=== PATIENT | male | born 1955 | race Caucasian/White ===

== ENCOUNTER 2018-12-21 20:30 | Inpatient (IN) | payer OTHER ==
[~2018-12-21] VITALS: Ht 182.9 cm; Wt 82.1 kg
[2018-12-22] VITALS (10 sets, daily range): BP systolic 96–125; BP diastolic 52–60; PULSE 60–72; RESP 18–22; Ht 182.9 cm; Wt 82.1 kg
[2018-12-22] MEDS ORDERED: SODIUM CHLORIDE 0.9% 1L BAG IV* STA
[2018-12-22] MEDS: ACETAMINOPHEN 325 MG TAB PO ONE ×2 (00:48→01:00)
[2018-12-22] MEDS ORDERED: PIPER-TAZO 3.375 GM IV (PMX) 100 ML IVPB ONE (01:00)
[2018-12-22] MEDS ORDERED: DEXAMETHASONE 10 MG/ML 1 ML INJ IV ONE (01:00)
[2018-12-22] MEDS ORDERED: VANCOMYCIN 1 GM (PMX) 250 ML IVPB ONE (01:00)
[2018-12-22] MEDS ORDERED: SOD CHLORIDE 0.9% 100 ML ONE (01:21)
[2018-12-22] MEDS ORDERED: IODIXANOL LOCM 100 ML BTL ONE (01:21)
[2018-12-22] MEDS ORDERED: ASPIRIN 81 MG TAB PO ONE (01:30)
[2018-12-22] MEDS ORDERED: ACETAMINOPHEN 650 MG SUPP PR ONE (01:30)
--- NOTE | 2018-12-22 02:47 | ERD ---
ER Documentation Chief Complaint Chief Complaint DYSPHAGIA X YESTERDAY. NEURO INTACT. HPI This is a 63-year-old male with a past medical history of hypertension, hyperlipidemia, coronary artery disease with previous [place] status post ca theterization and stenting who is presenting with 1 day of fever, chills, myalgias, sore throat, dysphagia with trouble swallowing solid foods but still able to swallow liquids, hoarse voice without drooling. The patient does not endorse any alleviating or exacerbating factors. The patient has had no headache or vision changes. The patient does not endorse neck or back pain. The patient denies lightheadedness or dizziness. The patient has had no chest pain or trouble breathing. The patient denies nausea or vomiting. The patient denies abdominal pain. The patient denies changes to bowel movements or urination. The patient has had no focal deficits. The patient has had no weakness or numbness or tingling to the face or extremities. ROS All systems reviewed and are negative except as per history of present illness. Allergies Allergies: Coded Allergies: No Known Allergies (Verified Allergy, Unknown, 12/21/18) PMhx/Soc History of Surgery: Yes (stenting) Anesthesia Reaction: No Hx Neurological Disorder: No Hx Respiratory Disorders: No Hx Cardiac Disorders: Yes (Heart attack,HTN,Hyperlipidemia) Hx Psychiatric Problems: No Hx Miscellaneous Medical Probl: Yes (BPH) Hx Alcohol Use: Yes (Occasional) Hx Substance Use: No Hx Tobacco Use: Yes (3 months ago) Smoking Status: Former smoker FmHx Family History: No diabetes Physical Exam Vitals Vital Signs Date Temp Pulse Resp B/P (MAP) Pulse Ox O2 O2 Flow FiO2 Time Delivery Rate 12/22/18 87 21 110/59 97 Room Air 02:00 (76) 12/22/18 103.6 01:40 12/22/18 90 19 101/67 97 Room Air 01:30 (78) 12/22/18 103.6 103 22 121/78 97 Room Air 00:30 (92) 12/21/18 103.6 95 22 168/77 96 20:36 (107) Physical Exam Const: No apparent distress, well-developed, well-nourished Head: Normocephalic, Atraumatic Eyes: Normal Conjunctiva. Extraocular movements intact. Pupils equal, round and reactive to light ENT: Normal External Ears, Nose and Mouth. Patent airway. No obvious erythema or asymmetry or exudate to the tonsils. No angioedema. Neck: Full range of motion. No meningismus. Submandibular lymphadenopathy. Resp: Clear to auscultation bilaterally, No wheezes, rales or rhonchi Cardio: Regular rate and rhythm. No murmurs, rubs or gallops Abd: Soft, non tender, non distended. Normal bowel sounds Skin: No petechiae or rashes Back: No midline tenderness. No CVA tenderness Ext: No cyanosis, or edema Neur: Awake and alert, oriented 4. Cranial nerves intact. No facial droop. Normal strength, sensation and coordination. Psych: Normal Mood and Affect Result Diagram: 12/22/18 0004 12/22/18 0004 Results 24 hrs Laboratory Tests Test 12/22/18 00:04 12/22/18 00:20 12/22/18 00:50 12/22/18 02:32 White Blood Count 20.3 10^3/ul Red Blood Count 5.19 10^6/ul Hemoglobin 14.4 g/dl Hematocrit 44.3 % Mean Corpuscular 85.4 fl Volume Mean Corpuscular 27.7 pg Hemoglobin Mean Corpuscular 32.5 g/dl Hemoglobin Concen t Red Cell 13.2 % Distribution Width Platelet Count 154 10^3/UL Mean Platelet 10.1 fl Volume Immature 0.600 % Granulocytes % Neutrophils % 85.2 % Lymphocytes % 4.0 % Monocytes % 10.0 % Eosinophils % 0.0 % Basophils % 0.2 % Nucleated Red 0.0 /100WBC Blood Cells % Immature 0.130 10^3/ul Granulocytes # Neutrophils # 17.3 10^3/ul Lymphocytes # 0.8 10^3/ul Monocytes # 2.0 10^3/ul Eosinophils # 0.0 10^3/ul Basophils # 0.0 10^3/ul Nucleated Red 0.0 10^3/ul Blood Cells # Prothrombin Time 14.0 Sec Prothrombin Time 1.1 Ratio INR International 1.07 Normalized Ratio Activated 30.6 Sec Partial Thrombopl ast Time Sodium Level 139 mmol/L Potassium Level 3.6 mmol/L Chloride Level 102 mmol/L Carbon Dioxide 24 mmol/L Level Anion Gap 13 Blood Urea 17 mg/dl Nitrogen Creatinine 1.19 mg/dl Est Glomerular > 60 mL/min Filtrat Rate mL/min Glucose Level 124 mg/dl Calcium Level 10.0 mg/dl Total Bilirubin 1.2 mg/dl Direct Bilirubin 0.00 mg/dl Indirect 1.2 mg/dl Bilirubin Aspartate Amino 26 IU/L Transf (AST/SGOT) Alanine 37 IU/L Aminotransferase (ALT/SGPT) Alkaline 80 IU/L Phosphatase Troponin I 0.168 ng/ml Total Protein 7.8 g/dl Albumin 4.7 g/dl Globulin 3.10 g/dl Albumin/Globulin 1.51 Ratio POC Venous 1.3 mmol/L 1.2 mmol/L Lactate Urine Color YELLOW Urine Clarity SLIGHTLY CLOUDY Urine pH 5.0 Urine Specific 1.017 [place] Urine Ketones NEGATIVE mg/dL Urine Nitrite NEGATIVE mg/dL Urine Bilirubin NEGATIVE mg/dL Urine NEGATIVE mg/dL Urobilinogen Urine Leukocyte NEGATIVE Pat/ul Esterase Urine Microscopic 4 /HPF RBC Urine Microscopic 1 /HPF WBC Urine Mucus MANY /HPF Urine Hemoglobin 1+ mg/dL Urine Glucose NEGATIVE mg/dL Urine Total NEGATIVE mg/dl Protein Current Medications Medications Dose Sig/Becky Start Time Status Last (Trade) Ordered Route PRN Stop Time Admin Dose Reason Admin Sodium 2,550 ml BOLUS OVER 2 12/22/18 DC 12/22/18 Chloride HOURS STAT 00:00 00:27 (NS) IV* 12/22/18 00:03 Vancomycin 250 ml @ ONCE ONCE 12/22/18 DC 12/22/18 HCl 125 mls/hr IVPB 01:00 01:40 12/22/18 02:59 Piperacillin 100 ml @ ONCE ONCE 12/22/18 DC 12/22/18 Sod/ 200 mls/hr IVPB 01:00 00:48 Tazobactam 12/22/18 01:29 Sod 10 mg ONCE ONCE 12/22/18 DC 12/22/18 Dexamethasone IV 01:00 00:48 (Decadron) 12/22/18 01:01 650 mg ONCE ONCE 12/22/18 DC Acetaminophen PO 01:00 (Tylenol 12/22/18 01:01 Tab) Aspirin 324 mg ONCE ONCE 12/22/18 DC 12/22/18 (Aspirin) PO 01:30 01:40 12/22/18 01:31 650 mg ONCE ONCE 12/22/18 DC 12/22/18 Acetaminophen CA 01:30 01:40 (Tylenol 12/22/18 01:31 Supp) IV Flush 10 ml STK-MED 12/22/18 DC 12/22/18 (NS 10 ml) ONCE .ROUTE 01:16 09:12/22/18 01:22 Sodium 100 ml @ ud STK-MED 12/22/18 DC 12/22/18 Chloride ONCE .ROUTE 01:16 09:12/22/18 01:22 Iodixanol 100 ml STK-MED 12/22/18 DC 12/22/18 (Visipaque ONCE .ROUTE :16 09: Locm) 12/22/18 01:22 Procedures/MDM MDM The patient's presentation warrants further investigation. Previous medical records, if available, were reviewed. LABS The patient's laboratory testing was obtained and reviewed. No emergent treatment was required unless described below. CBC: Leukocytosis with shift, concerning for an infectious etiology. Normal platelet count and hemoglobin. Chemistry: No E/o severe acidosis or alkalosis or renal failure or liver disease or diabetic ketoacidosis PT/INR: No E/o significant coagulopathy Lactate: No E/o severe sepsis Troponin: Elevated, concerning for possible cardiac ischemia Urine: No E/o acute infection or hematuria EKG EKG read by me: Rate/Rhythm: Sinus tachycardia at 104 bpm Intervals: Normal CA interval and QTc. Mildly wide QRS indicating a nonspecific intraventricular block [place]: Normal Impression: Nonspecific repolarization changes without evidence of acute ischemia or arrhythmia IMAGING Imaging and Radiology interpretation reviewed. CXR FINDINGS: Thoracic inlet and apices are partially obscured as the patient is kyphotic. There is thin linear opacity at the left base favoring atelectasis or scarring. Otherwise the lungs are free of focal infiltrate. No CHF including no pleural effusion. No pneumothorax is seen. The heart size and mediastinal contours are within normal limits. There is mild aortic arch atherosclerotic calcification. Osseous structures appear intact with mild degenerative changes. IMPRESSION: Somewhat limited, without definite acute process seen within the chest. Mild aortic atherosclerotic calcification. Electronically viewed and signed by Physician Bhavani on 12/22/2018 02:26 CT Soft Tissue Neck FINDINGS: There is diffuse thickening of the epiglottis measuring 14 mm in diameter on sagittal image 60. There is adjacent soft tissue thickening including of the aryepiglottic folds, and the piriform sinuses are not visualized bilaterally with narrowing of the vallecula left more so than right. Additional soft tissue thickening with lymphoid hyperplasia involving the lingual tonsils, and there is also heterogeneous enhancement and mild enlargement of the left palatine tonsil without a discrete loculated abscess present. As above, there is soft tissue thickening at and about the level of the glottis although the airway is patent.. The prevertebral soft tissues are within normal limits. Parotid and submandibular glands are symmetric. Mildly enlarged bilateral jugular chain nodes most apparent at the jugulodigastric level, measuring up to 10 mm on the right and 9 mm on the left. Inhomogeneity of the thyroid gland includes 4 mm hypodense nodule inferiorly in the right lobe, likely not clinically significant. Emphysematous changes are seen within the visualized apices. Multifocal atherosclerotic calcifications. Of incidental note is dominant left and hypoplastic right vertebral artery. Mild degenerative changes largely consisting of anterior osteophytes within the cervical spine. The central canal and foraminal volumes appear to be preserved. IMPRESSION: Findings consistent with acute epiglottitis. There is associated/adjacent soft tissue thickening including of the aryepiglottic folds, lingual tonsils, along with heterogeneity and mild enlargement of the left palatine tonsil without associated drainable abscess. A patent airway is seen at this time at this time. ENT evaluation is advised. Results and recommendations were called to the ordering clinician Dr. Encinas upon opening of the exam and prior to time of dictation at 0228 hours. Low level bilateral cervical adenopathy, presumably reactive/related. Atherosclerotic vascular calcifications. Emphysema. Electronically viewed and signed by Physician Pa on 12/22/2018 02:47 TREATMENT/DISPOSITION The patient presents for a sore throat, fever and tachycardia. The patient does also have a significant leukocytosis. The patient does meet criteria for a systemic inflammatory response syndrome. The patient CT scan is concerning for epiglottitis. The patient's airway is currently patent. I have decreased suspicion for emergent impending airway compromise. I do not feel that the patient requires intubation at this time. Given the edema of the epiglottis, the patient was also treated with a dose of Decadron. I am concerned about sepsis. A code sepsis was initiated. The patient's lactic acid is normal and there is no evidence of endorgan damage. I do not suspect severe sepsis. The patient was given a sepsis bolus of fluids and started on antibiotics. The patient was given Tylenol for his fever. The patient will require ENT consultation. The patient did also have an elevated troponin in the ER today. I do not see e vidence of acute coronary syndrome on the EKG. The patient does have a history of coronary artery disease status post stenting. The family reports that he has been told he has near complete occlusions and other vessels as well. The patient does not endorse symptoms concerning for a cardiac pathology. That said, the patient was given a dose of aspirin in the emergency department. SEPSIS NOTE SIRS Criteria: Tachycardia, fever, leukocytosis Infectious source: Epiglottitis End organ damage indicated by: None SEPSIS MANAGEMENT Time to recognize sepsis: 0100 Time to recognize severe sepsis: No severe sepsis at this time. Time to recognize septic shock: No septic shock at this time. 3 HOUR BUNDLE Blood cultures x 2 before abx: Yes 30 ml/kg NS bolus completed Initial lactate 1.3 Repeat lactate 1.2 SEPTIC SHOCK ASSESSMENT: NO lactic acid > 4.0 NO persistent hypotension (SBP < 90 or 40 mmHg drop, MAP < 65) despite 30 L/kg IV fluid bolus CRITICAL CARE Critical care time 35 minutes Emergent fluid management while maintaining close respiratory support. Provision of immediate and broad-spectrum antibiotic therapy. Simultaneous assessment for possible sources in order to direct targeted therapy. Consideration for invasive and chemical support to prevent cardiopulmonary collapse. Critical care time is independent of procedures performed. CRITICAL CARE NOTE Time: 36 minutes excluding all billable procedures. Treatments/Evaluations: The patient was at risk of hemodynamic compromise. Timing of critical care involved close serial monitoring, evaluation of the patient's medical record including previous records & current laboratory/imaging studies, potential interventions for prevention of hemodynamic/ cardiopulmonary/ neurologic compromise, maintaining tight fluid balance, and any discussions with the family and/or consultants regarding the patient's status and prognosis. ADMISSION The patient will be admitted to Dr. Hale in accordance with the patient's insurance. The patient was accepted at 3:15AM to the telemetry. Admission to the ICU was discussed with Dr. Hale, but he did not feel that it was necessary at this time. Dr. Hale will call the ENT specialist for consultation. Disclaimer: Inadvertent spelling and grammatical errors are likely due to EHR/dictation software use and do not reflect on the overall quality of patient care. Note that the electronic time recorded on this note does not necessarily reflect the actual time of the patient encounter. Departure Diagnosis: Primary Impression: Epiglottitis Additional Impressions: Sepsis Sepsis type: sepsis due to unspecified organism Qualified Codes: A41.9 - Sepsis, unspecified organism Tachycardia Fever Fever type: unspecified Qualified Codes: R50.9 - Fever, unspecified Leukocytosis Leukocytosis type: unspecified Qualified Codes: D72.829 - Elevated white blood cell count, unspecified Elevated troponin Dysphagia Dysphagia type: unspecified Qualified Codes: R13.10 - Dysphagia, unspecified Condition: Serious AFUA ENCINAS MD Dec 22, 2018 02:45
[2018-12-22] MEDS ORDERED: SOD CHLORIDE 0.9% 1,000 ML IV ONE (04:00)
[2018-12-22] MEDS ORDERED: ACETAMINOPHEN 325 MG TAB PO PRN (04:00)
[2018-12-22] MEDS ORDERED: ONDANSETRON 4 MG INJ IV PRN (04:00)
[2018-12-22] MEDS ORDERED: morphine 2 MG INJ IV PRN (06:30)
--- NOTE | 2018-12-22 07:19 | HP ---
DATE OF ADMISSION: 12/22/2018 HISTORY OF PRESENT ILLNESS: Dawn Hamilton is a 63-year-old gentleman who presented to the Emergency Room this morning with odynophagia. A CAT scan revealed possible epiglottitis. ENT was consulted. PHYSICAL EXAMINATION: Endoscopy was performed to the right nasal cavity because of severe deviation to the left. The nasopharynx is clear. The base of tongue is symmetric. The vallecula is open. Th e epiglottis shows mild erythema and exudate, but no significant airway obstruction. Vocal cords are moving well. There are no lesions. IMPRESSION: Acute epiglottitis. PLAN: At this point, I would continue the steroids and antibiotics. He should be ready for discharg e I suspect within the next 24 hours. If there are any questions or concerns, please feel free to ca ll at any time. Dictated By: SUSU ARAGON MD DM/NTS Conf#: [id number] DID#: [id number] CC: DONTRELL LARA MD;*EndCC*
[2018-12-22] MEDS: DEXTROSE 5%-0.45% NACL 1,000 ML IV SCH ×3 (07:55→20:01)
--- NOTE | 2018-12-22 10:53 | HP ---
DATE OF ADMISSION: 12/22/2018 CHIEF COMPLAINT: Sore throat and difficulty swallowing. HISTORY OF PRESENT ILLNESS: A 63-year-old [place] male with history of hypertension and coronary ar garth disease, status post PCI in the past, presented to emergency room with complaint of sore throat, fever, body aches and difficulty swallowing x1 day. The patient denies any difficulty breathing. N o chest pain. No exertional symptoms. No drooling. Initial evaluation revealed evidence of epiglot titis. The patient had a soft tissue CAT scan of the neck. This study showed acute epiglottitis wit h associated adjacent soft tissue thickening including the aryepiglottic folds, lingual tonsils. No drainable abscess was noted. Her airway was patent. White blood cell count was elevated at 20,000. PAST MEDICAL HISTORY: 1. Hypertension. 2. Coronary artery disease. 3. Status post PCI in the past. SOCIAL HISTORY: Patient does not speak Somali. He denies tobacco or alcohol use. PHYSICAL EXAMINATION: GENERAL: Well-developed, well-nourished male who is in no apparent distress. He was drinking fluids at the bedside. VITAL SIGNS: Stable. He is afebrile. HEENT: Extraocular muscles intact. Pupils equal and reactive to light bilaterally. Oropharynx is c lear. No erythema or exudate noted. NECK: Supple. LUNGS: Clear to auscultation bilaterally. CARDIAC: Regular rate and rhythm. No murmurs, rubs or gallops. ABDOMEN: Soft, nontender, nondistended, normoactive bowel sounds. EXTREMITIES: No clubbing, cyanosis, or edema. NEUROLOGIC: Nonfocal. Troponin was elevated 0.168. ASSESSMENT: 1. A 63-year-old male with acute epiglottitis. The airway is patent and the patient is able to swal low. 2. Coronary artery disease. 3. Elevated troponin with no clinical evidence of acute MD. 4. Coronary artery disease, status post PCI in the past. PLAN: Admit to wear telemetry, continue IV Zosyn. Repeat troponin. ENT consultation was requested. Dictated By: DONTRELL REYES/CHAD Conf#: [id number] DID#: [id number]
[2018-12-22] MEDS: DEXAMETHASONE 4 MG/ML 1 ML INJ IV SCH ×2 (11:42→17:47)
[2018-12-22] MEDS: PIPER-TAZO 3.375 GM IV (PMX) 100 ML IVPB SCH ×2 (11:43→17:47)
[2018-12-23] VITALS (8 sets, daily range): BP systolic 119–126; BP diastolic 58–68; PULSE 51–78; RESP 18–19
[2018-12-23] MEDS: PIPER-TAZO 3.375 GM IV (PMX) 100 ML IVPB SCH ×3 (00:08→11:20)
[2018-12-23] MEDS: DEXAMETHASONE 4 MG/ML 1 ML INJ IV SCH ×3 (00:08→11:20)
[2018-12-23] MEDS: DEXTROSE 5%-0.45% NACL 1,000 ML IV SCH (05:58)
[2018-12-23] MEDS ORDERED: AMOX125S16 PO ×2 (09:46→09:51)
--- NOTE | 2018-12-23 09:47 | PDOCDIS ---
Discharge Instructions CONDITION [id number] Patient Condition: [id number] Good HOME CARE INSTRUCTIONS: [id number] Diet Instructions: [id number] Special Diet: [id number] soft mechanical and advance as tolerated ACTIVITY: [id number] Activity Restrictions: [id number] No Restrictions FOLLOW UP/APPOINTMENTS Follow-up Plan pcp 1 week DONTRELL LARA MD Dec 23, 2018 09:47
--- NOTE | 2018-12-23 16:19 | DS ---
DATE OF ADMISSION: 12/22/2018 DATE OF DISCHARGE: 12/23/2018 DISCHARGE DIAGNOSES: 1. Acute epiglottitis. 2. Dysphagia, resolved. HOSPITAL COURSE: A 63-year-old male with history of coronary artery disease, presented to emergency room with complaint of sore throat and difficulty swallowing x1 day. Initial evaluation revealed velia dence of acute epiglottitis with associated adjacent soft tissue thickening. The airway was patent. The patient tolerated oral intake. His white blood cell count was 20,000. He received IV Zosyn. H is condition improved significantly. He remained afebrile. Repeat white blood cell count was 15.9. The case was discussed with ENT specialist, Dr. Milligan. The patient is in a stable condition for dis charge. I prescribed 7 days of Augmentin suspension at 875 mg b.i.d. The patient will follow up wit h his PCP in 1 week. He was asked to adhere to soft mechanical diet and advance as tolerated. Dictated By: DONTRELL REYES/CHAD Conf#: [id number] DID#: [id number]
== END 2018-12-23 12:34 | disposition home or self-care (01) | DRG 153 ==
LOC: E/R 20:30 → TEL 12-22 03:34
PROVIDERS: ADMIT Internal Medicine; ATTEND Internal Medicine
DX: J05.10 Acute epiglottitis without obstruction (principal); I10 Essential (primary) hypertension; E78.5 Hyperlipidemia, unspecified; I25.10 Atherosclerotic heart disease of native coronary artery without angina pectoris; I25.2 Old myocardial infarction; N40.0 Benign prostatic hyperplasia without lower urinary tract symptoms; R74.8 Abnormal levels of other serum enzymes; Z95.5 Presence of coronary angioplasty implant and graft; Z87.891 Personal history of nicotine dependence
CPT/HCPCS: 36415; 70491; 71045; 80048; 80053; 81001; 83605; 84484; 85025; 85610; 85730; 87086; 87400; 87880; 93005; 96365; 96366; 96368; 96375; J1100; J2543; J3370; J7030; J7042; Q9967